=== PATIENT | female | born 1985 | race Caucasian/White ===

== ENCOUNTER 2018-03-02 14:18 | Emergency (ER) | payer OTHER ==
[2018-03-02] MEDS ORDERED: SODIUM CHLORIDE 0.9% 1,000 ML IV STA (14:42)
[2018-03-02] MEDS ORDERED: MAG HYDROX/AL HYDROX/SIMETH 30 ML, HYOSCYAMINE ELIXIR 10 ML, CIMETIDINE HCL 300 MG PO STA ×3 (14:43)
--- NOTE | 2018-03-02 15:02 | ED ---
Abdominal Pain HPI - General Chief Complaint: Abdominal Pain Stated Complaint: Abd Pain Time Seen by Provider: 03/02/18 14:36 Source: patient, RN notes reviewed Mode of arrival: ambulatory Limitations: no limitations - History of Present Illness Initial Comments: 32-year-old female presents emergency Department with chief complaint of left lower quadrant abdominal pain. Patient states that the symptoms started shortly after drinking some Coke. She states that her possible intervention cold the caffeine because she complained of a headache. Patient states her headache has improved but she has is sharp spasm like pain in her left upper quadrant. She states it's nonradiating. Denies any back or flank pain. She denies any current nausea, vomiting, diarrhea constipation. Denies any known fevers or chills. She's had no prior abdominal surgeries. Denies any chance . - Related Data Previous Rx's Medication Instructions Recorded Omeprazole 40 mg PO DAILY #14 capsule. 03/02/18 Allergies Allergy/AdvReac Type Severity Reaction Status Date / Time No Known Allergies Allergy Verified 03/02/18 14:30 Review of Systems ROS Statement: Those systems with pertinent positive or pertinent negative responses have been documented in the HPI. ROS Other: All systems not noted in ROS Statement are negative. Past Medical History Past Medical History: Asthma History of Any Multi-Drug Resistant Organisms: None Reported Past Surgical History: Section Past Psychological History: No Psychological Hx Reported Smoking Status: Current every day smoker Past Alcohol Use History: Rare Past Drug Use History: None Reported General Exam Limitations: no limitations General appearance: alert, in no apparent distress Head exam: Present: atraumatic, normocephalic, normal inspection Respiratory exam: Present: normal lung sounds bilaterally. Absent: respiratory distress, wheezes, rales, rhonchi, stridor Cardiovascular Exam: Present: regular rate, normal rhythm, normal heart sounds. Absent: systolic murmur, diastolic murmur, rubs, gallop, clicks GI/Abdominal exam: Present: soft, tenderness (moderate LUQ), normal bowel sounds. Absent: distended, guarding, rebound, rigid Back exam: Absent: CVA tenderness (R), CVA tenderness (L) Skin exam: Present: warm, dry, intact, normal color. Absent: rash Course Vital Signs 03/02/18 03/02/18 14:28 16:30 Temperature 98.7 F 98.5 F Pulse Rate 102 H 64 Respiratory 18 16 Rate Blood Pressure 126/89 132/81 O2 Sat by Pulse 99 100 Oximetry Medical Decision Making - Medical Decision Making 32-year-old female presented for abdominal pain. Patient has ongoing abdominal pain. Lab work, CT is unremarkable. Patient has symptoms more consistent with gastritis. She'll be started on omeprazole. Return parameters discussed. - Lab Data Result diagrams: 03/02/18 15:10 03/02/18 15:10 Lab Results 03/02/18 03/02/18 03/02/18 Range/Units 15:10 15:10 15:10 WBC 7.6 (3.8-10.6) k/uL RBC 4.70 (3.80-5.40) m/uL Hgb 14.8 (11.4-16.0) gm/dL Hct 43.8 (34.0-46.0) % MCV 93.2 (80.0-100.0) fL MCH 31.5 (25.0-35.0) pg MCHC 33.8 (31.0-37.0) g/dL RDW 12.5 (11.5-15.5) % Plt Count 236 (150-450) k/uL Neutrophils % 84 % Lymphocytes % 10 % Monocytes % 4 % Eosinophils % 1 % Basophils % 0 % Neutrophils # 6.4 (1.3-7.7) k/uL Lymphocytes # 0.8 L (1.0-4.8) k/uL Monocytes # 0.3 (0-1.0) k/uL Eosinophils # 0.1 (0-0.7) k/uL Basophils # 0.0 (0-0.2) k/uL Sodium 141 (137-145) mmol/L Potassium 4.3 (3.5-5.1) mmol/L Chloride 108 H (98-107) mmol/L Carbon Dioxide 23 (22-30) mmol/L Anion Gap 10 mmol/L BUN 9 (7-17) mg/dL Creatinine 0.65 (0.52-1.04) mg/dL Est GFR (CKD-EPI)AfAm >90 (>60 ml/min/1.73 sqM) Est GFR (CKD-EPI)NonAf >90 (>60 ml/min/1.73 sqM) Glucose 94 (74-99) mg/dL Calcium 9.3 (8.4-10.2) mg/dL Total Bilirubin 0.9 (0.2-1.3) mg/dL AST 40 H (14-36) U/L ALT 67 H (9-52) U/L Alkaline Phosphatase 55 (38-126) U/L Total Protein 7.8 (6.3-8.2) g/dL Albumin 4.9 (3.5-5.0) g/dL Amylase 44 (30-110) U/L Lipase 28 (23-300) U/L Urine Color Urine Appearance (Clear) Urine pH (5.0-8.0) Ur Specific [place] (1.001-1.035) Urine Protein (Negative) Urine Glucose (UA) (Negative) Urine Ketones (Negative) Urine Blood (Negative) Urine Nitrite (Negative) Urine Bilirubin (Negative) Urine Urobilinogen (<2.0) mg/dL Ur Leukocyte Esterase (Negative) Urine RBC (0-5) /hpf Urine WBC (0-5) /hpf Ur Squamous Epith Cells (0-4) /hpf Urine Mucus (None) /hpf Urine HCG, Qual Not Detected (Not Detectd) 03/02/18 Range/Units 15:10 WBC (3.8-10.6) k/uL RBC (3.80-5.40) m/uL Hgb (11.4-16.0) gm/dL Hct (34.0-46.0) % MCV (80.0-100.0) fL MCH (25.0-35.0) pg MCHC (31.0-37.0) g/dL RDW (11.5-15.5) % Plt Count (150-450) k/uL Neutrophils % % Lymphocytes % % Monocytes % % Eosinophils % % Basophils % % Neutrophils # (1.3-7.7) k/uL Lymphocytes # (1.0-4.8) k/uL Monocytes # (0-1.0) k/uL Eosinophils # (0-0.7) k/uL Basophils # (0-0.2) k/uL Sodium (137-145) mmol/L Potassium (3.5-5.1) mmol/L Chloride (98-107) mmol/L Carbon Dioxide (22-30) mmol/L Anion Gap mmol/L BUN (7-17) mg/dL Creatinine (0.52-1.04) mg/dL Est GFR (CKD-EPI)AfAm (>60 ml/min/1.73 sqM) Est GFR (CKD-EPI)NonAf (>60 ml/min/1.73 sqM) Glucose (74-99) mg/dL Calcium (8.4-10.2) mg/dL Total Bilirubin (0.2-1.3) mg/dL AST (14-36) U/L ALT (9-52) U/L Alkaline Phosphatase (38-126) U/L Total Protein (6.3-8.2) g/dL Albumin (3.5-5.0) g/dL Amylase (30-110) U/L Lipase (23-300) U/L Urine Color Yellow Urine Appearance Cloudy H (Clear) Urine pH 8.5 H (5.0-8.0) Ur Specific [place] 1.022 (1.001-1.035) Urine Protein 2+ H (Negative) Urine Glucose (UA) Negative (Negative) Urine Ketones Negative (Negative) Urine Blood Negative (Negative) Urine Nitrite Negative (Negative) Urine Bilirubin Negative (Negative) Urine Urobilinogen <2.0 (<2.0) mg/dL Ur Leukocyte Esterase Trace H (Negative) Urine RBC 2 (0-5) /hpf Urine WBC 2 (0-5) /hpf Ur Squamous Epith Cells 7 H (0-4) /hpf Urine Mucus Rare H (None) /hpf Urine HCG, Qual (Not Detectd) Disposition Clinical Impression: Abdominal pain, Gastritis Disposition: HOME SELF-CARE Condition: Stable Instructions: Gastritis (ED) Additional Instructions: Please return to the Emergency Department if symptoms worsen or any other concerns. Prescriptions: Omeprazole 40 mg PO DAILY #14 capsule.dr Is patient prescribed a controlled substance at d/c from ED?: No When asked, does pt state using other controlled substances?: No Referrals: Sandro Pal MD [STAFF PHYSICIAN] - 1-2 days Time of Disposition: 17:23
[2018-03-02 15:22] LABS: Basophils % (A) 0 %; Eosinophils # (A) 0.1 k/uL (0-0.7); Eosinophils % (A) 1 %; HCT 43.8 % (34.0-46.0); HGB 14.8 gm/dL (11.4-16.0); Lymphocytes # (A) 0.8 k/uL (1.0-4.8); Lymphocytes % (A) 10 %; MCH 31.5 pg (25.0-35.0); MCHC 33.8 g/dL (31.0-37.0); MCV 93.2 fL (80.0-100.0); Mean Platelet Volume 7.2; Monocytes # (A) 0.3 k/uL (0-1.0); Monocytes % (A) 4 %; Neutrophils # (A) 6.4 k/uL (1.3-7.7); Neutrophils % (A) 84 %; Platelet Count 236 k/uL (150-450); RDW 12.5 % (11.5-15.5); WBC 7.6 k/uL (3.8-10.6)
[2018-03-02 15:28] LABS: Appearance,Urine Cloudy (Clear); Bilirubin,Urine Negative (Negative); Blood,Urine Negative (Negative); Color,Urine Yellow; Glucose,Urine (UA) Negative (Negative); Ketones,Urine Negative (Negative); Leukocyte Esterase,Urine Trace (Negative); Mucus,Urine Rare /hpf; Nitrite,Urine Negative (Negative); PH, Urine 8.5 (5.0-8.0); Protein,Urine 2+ (Negative); RBC,Urine 2 /hpf (0-5); Specific Gravity,Urine 1.022 (1.001-1.035); Squamous Epithelial Cell,Urine 7 /hpf (0-4); Urobilinogen,Urine <2.0 mg/dL (<2.0); WBC,Urine 2 /hpf (0-5)
[2018-03-02 15:41] LABS: ALT 67 U/L (9-52); AST 40 U/L (14-36); Albumin 4.9 g/dL (3.5-5.0); Alkaline Phosphatase 55 U/L (38-126); Amylase 44 U/L (30-110); Anion Gap 10 mmol/L; Blood Urea Nitrogen 9 mg/dL (7-17); Calcium 9.3 mg/dL (8.4-10.2); Carbon Dioxide 23 mmol/L (22-30); Chloride 108 mmol/L (98-107); Glucose 94 mg/dL (74-99); Lipase 28 U/L (23-300); Potassium 4.3 mmol/L (3.5-5.1); Sodium 141 mmol/L (137-145); Total Bilirubin 0.9 mg/dL (0.2-1.3); Total Protein 7.8 g/dL (6.3-8.2)
--- NOTE | 2018-03-02 16:04 | XR ---
EXAMINATION TYPE: XR KUB DATE OF EXAM: 03/02/2018 3:53 PM CLINICAL HISTORY: Left lower quadrant pain. TECHNIQUE: Single supine KUB image of the abdomen is obtained. COMPARISON: None. FINDINGS: Scattered gas is seen in non-distended small bowel loops. Gas and fecal material is seen in non-distended colon. There is no visceromegaly, pneumoperitoneum, or abnormal calcification apprecia abbi. The lung bases are clear and the osseous structures are intact. IMPRESSION: Nonobstructive bowel gas pattern.
--- NOTE | 2018-03-02 16:50 | CT ---
EXAMINATION TYPE: CT abdomen pelvis w con DATE OF EXAM: 03/02/2018 COMPARISON: None HISTORY: LUQ pain and nausea today CT DLP: 1220 mGycm Automated exposure control for dose reduction was used. TECHNIQUE: Helical acquisition of images was performed from the lung bases through the pelvis. CONTRAST: Performed without Oral Contrast and with IV Contrast, patient injected with 100 mL of Isovue 300. FINDINGS: Lung bases are clear. There is no pleural effusion. Heart size is normal. There is no pericardial eff usion. Liver spleen pancreas gallbladder appear normal. Bile ducts are not dilated. There is no adrenal mass . Kidneys show satisfactory contrast opacification. There is no hydronephrosis. There is no ascites. Bladder distends smoothly. Uterus is anteverted. There is no evidence of a pelvic mass. Bony structur es appear intact. 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 I see no intestinal wall thick ening. There are no dilated loops. Appendix appears normal. IMPRESSION: NEGATIVE CT SCAN OF THE ABDOMEN AND PELVIS. NORMAL APPENDIX.
[2018-03-02] MEDS ORDERED: KETOROLAC 30 MG/ML 1 ML VIAL IVP STA (17:22)
[2018-03-02 17:55] VITALS: BP 128/72; PULSE 88; RESP 18; TEMP 98
== END 2018-03-02 17:50 | disposition home or self-care (01) ==
LOC: EC 14:18
DX: K29.70 Gastritis, unspecified, without bleeding (principal); F17.200 Nicotine dependence, unspecified, uncomplicated
CPT/HCPCS: 36415; 80053; 82150; 83690; 85025; 81001; 81025; 74018; 74177; 99284; 96374; 96361 ×2; J1885; Q9967

== ENCOUNTER 2018-09-24 21:20 | Inpatient (IN) | payer OTHER ==
--- NOTE | 2018-09-24 22:58 | ED ---
Psych HPI - General Source: patient Mode of arrival: ambulatory <Amita Scott - Last Filed: 09/25/18 04:06> <Vivi Guadalupe - Last Filed: 09/26/18 07:56> - General Chief Complaint: Psychiatric Symptoms Stated Complaint: Mental health Time Seen by Provider: 09/24/18 22:01 - History of Present Illness Initial Comments: 33-year-old female patient presents to the emergency department today for evaluation of increased anxiety and depression. Patient states that she has been having suicidal ideation today and was afraid to be alone. States that she did have a plan to drive her car fast into something. Patient states that he seems overwhelming at this time and she feels like everything is happening at once. States that this is causing her to become increasingly depressed and anxious. Patient states she did have one shot of alcohol today but denies any other alcohol or street drug use. Denies any current use of psychiatric medications. She does not see a counselor outpatient. States that she did have one previous suicide attempt in the past by taking pills when she was in high school. Denies any previous psychiatric admissions. States currently she is feeling well physically. Patient denies any recent rash, fever, chills, shortness breath, chest pain, abdominal pain, nausea, vomiting, diarrhea, constipation, back pain, numbness, tingling, dizziness, weakness, hematuria, dysuria, urinary urgency, urinary frequency, headache, visual changes, or any other complaints. (Amita Scott) - Related Data Home Medications Medication Instructions Recorded Confirmed No Known Home Medications 09/24/18 09/25/18 Allergies Allergy/AdvReac Type Severity Reaction Status Date / Time No Known Allergies Allergy Verified 09/25/18 02:40 Review of Systems ROS Other: All systems not noted in ROS Statement are negative. <Amita Scott - Last Filed: 09/25/18 04:06> ROS Other: All systems not noted in ROS Statement are negative. <Vivi Guadalupe - Last Filed: 09/26/18 07:56> ROS Statement: Those systems with pertinent positive or pertinent negative responses have been documented in the HPI. Past Medical History Past Medical History: Asthma History of Any Multi-Drug Resistant Organisms: None Reported Past Surgical History: Section Past Psychological History: Anxiety, Depression Smoking Status: Current every day smoker Past Alcohol Use History: Rare Past Drug Use History: Marijuana - Past Family History Mother Family Medical History: Hypertension Father Family Medical History: Cancer Additional Family Medical History / Comment(s): Pt states her father in 2010 from esophageal cancer <Amita Scott - Last Filed: 09/25/18 04:06> General Exam Limitations: no limitations General appearance: alert, in no apparent distress, other (Physical well- developed, well-nourished adult female patient in no acute distress. Vital signs upon presentation are temperature 98.1F, pulse 103, respirations 18, blood pressure 161/113, pulse ox 97% on room air.) Eye exam: Present: normal appearance, PERRL, EOMI. Absent: scleral icterus, conjunctival injection, periorbital swelling ENT exam: Present: normal exam, normal oropharynx, mucous membranes moist Respiratory exam: Present: normal lung sounds bilaterally. Absent: respiratory distress, wheezes, rales, rhonchi, stridor Cardiovascular Exam: Present: regular rate, normal rhythm, normal heart sounds. Absent: systolic murmur, diastolic murmur, rubs, gallop, clicks Neurological exam: Present: alert, oriented X3, CN II-XII intact Psychiatric exam: Present: depressed, anxious, suicidal ideation. Absent: homicidal ideation Skin exam: Present: warm, dry, intact, normal color. Absent: rash <Amita Scott - Last Filed: 09/25/18 04:06> Vital Signs 09/24/18 09/25/18 21:38 01:18 Temperature 98.1 F 98 F Pulse Rate 103 H 88 Respiratory 18 16 Rate Blood Pressure 161/113 139/98 O2 Sat by Pulse 97 98 Oximetry Medical Decision Making <Amita Scott - Last Filed: 09/25/18 04:06> <Vivi Guadalupe - Last Filed: 09/26/18 07:56> - Medical Decision Making 33-year-old female patient presented to the emergency department today for evaluation of increased depression and suicidal ideation. Physical examination was unremarkable. She was cleared medically and evaluated by emergency psychiatric services. It is felt patient would benefit from inpatient mission at this time. She'll be transferred to the mental health unit. (Amita Scott) I was available for consultation in the emergency department. The history and physical exam were done by the midlevel provider. I was consulted for this patient's care. I reviewed the case with the midlevel provider and based on their presentation of the patient, I agree with the assessment, medical decision making and plan of care as documented. (Vivi Guadalupe) - Lab Data Lab Results 09/24/18 09/25/18 09/25/18 Range/Units 21:45 00:00 00:00 Urine Color Yellow Urine Appearance Clear (Clear) Urine pH 6.0 (5.0-8.0) Ur Specific [place] 1.026 (1.001-1.035) Urine Protein Trace H (Negative) Urine Glucose (UA) Negative (Negative) Urine Ketones 1+ H (Negative) Urine Blood Negative (Negative) Urine Nitrite Negative (Negative) Urine Bilirubin Negative (Negative) Urine Urobilinogen <2.0 (<2.0) mg/dL Ur Leukocyte Esterase Negative (Negative) Urine HCG, Qual Not Detected (Not Detectd) Urine Opiates Screen Not Detected (NotDetected) Ur Oxycodone Screen Not Detected (NotDetected) Urine Methadone Screen Not Detected (NotDetected) Ur Propoxyphene Screen Not Detected (NotDetected) Ur Barbiturates Screen Not Detected (NotDetected) U Tricyclic Antidepress Not Detected (NotDetected) Ur Phencyclidine Scrn Not Detected (NotDetected) Ur Amphetamines Screen Not Detected (NotDetected) U Methamphetamines Scrn Not Detected (NotDetected) U Benzodiazepines Scrn Not Detected (NotDetected) Urine Cocaine Screen Not Detected (NotDetected) U Marijuana (THC) Screen Detected H (NotDetected) Disposition - Out of Hospital Transfer - Req. Specs Out of Hospital Transfer - Requested Specifics: Psychiatric Non-ICU ([facility]) <Amita Scott M - Last Filed: 09/25/18 04:06> <Vivi Guadalupe - Last Filed: 09/26/18 07:56> Clinical Impression: Depression, Suicidal ideation Disposition: TRANSFER TO PSYCH HOSP/UNIT Condition: Serious
[2018-09-24 23:09] LABS: Amphetamine Screen,Urine Not Detected (NotDetected); Barbiturate Screen,Urine Not Detected (NotDetected); Benzodiazepines Screen,Urine Not Detected (NotDetected); Cocaine Screen,Urine Not Detected (NotDetected); Methadone Screen, Urine Not Detected (NotDetected); Opiate Screen,Urine Not Detected (NotDetected); Oxycodone Screen, Urine Not Detected (NotDetected); Phencyclidine Screen,Urine Not Detected (NotDetected); Tricyclic Antidepressant,Urine Not Detected (NotDetected); Urn Cannabinoid Scrn Detected (NotDetected)
[2018-09-25] MEDS ORDERED: ACETAMINOPHEN TAB 500 MG TAB PO STA (00:56)
[2018-09-25] MEDS ORDERED: ACETAMINOPHEN TAB 325 MG TAB PO PRN (01:28)
[2018-09-25] MEDS ORDERED: MAG HYDROX/AL HYDROX/SIMETH 30 ML CUP PO PRN (01:28)
[2018-09-25] MEDS ORDERED: ZIPRASIDONE 20 MG VIAL IM PRN (01:28)
[2018-09-25] MEDS ORDERED: MAGNESIUM HYDROXIDE 2,400 MG/10 ML CUP PO PRN (01:28)
[2018-09-25] MEDS ORDERED: LORazepam 1 MG TAB PO PRN (01:28)
[2018-09-25 02:04] LABS: Appearance,Urine Clear (Clear); Bilirubin,Urine Negative (Negative); Blood,Urine Negative (Negative); Color,Urine Yellow; Glucose,Urine (UA) Negative (Negative); Ketones,Urine 1+ (Negative); Leukocyte Esterase,Urine Negative (Negative); Nitrite,Urine Negative (Negative); Protein,Urine Trace (Negative); Specific Gravity,Urine 1.026 (1.001-1.035); Urobilinogen,Urine <2.0 mg/dL (<2.0)
[2018-09-25 02:36] VITALS: BMI 34.0
--- NOTE | 2018-09-25 08:04 | P.HPIM ---
History of Present Illness H&P Date: 09/25/18 The patient is a 33-year-old female with a PMH of depression who presented to the ED due to suicidal ideation. The patient notes that things in her life and been overwhelming and that she had thoughts of hurting herself by driving her car into oncoming traffic. She notes that her social situation is really poor and that she has lost her high paying job and is currently working minimal wage and has also lost custody of her children and is currently homeless, living in her car. The patient notes that she feels as though she is a burden on her friends with whom she has been staying recently and noted that upon awakening yesterday she felt really depressed and wanted to hurt herself, and didn't feel safe, at which point she decided to come to the ED. The patient notes that she previously attempted suicide by taking a bottle full of aspirin when she was in high school after a fight with her boyfriend. The patient otherwise denied any active complaints or any additional past medical history. She does not take any medications. She denied chest pain, shortness of breath, nausea, vomiting, abdominal pain, diarrhea, constipation, fever, chills, or cough. She also denied any active homicidal or suicidal ideation. Review of Systems Pertinent positives and negatives as discussed in HPI, a complete review of systems was performed and all other systems are negative. Past Medical History Past Medical History: Asthma Additional Past Medical History / Comment(s): Degenerative disk disease and gastritis History of Any Multi-Drug Resistant Organisms: None Reported Past Surgical History: Section Past Anesthesia/Blood Transfusion Reactions: No Reported Reaction Past Psychological History: Anxiety, Depression Smoking Status: Current every day smoker Past Alcohol Use History: Rare Past Drug Use History: Marijuana - Past Family History Mother Family Medical History: Hypertension Father Family Medical History: Cancer Additional Family Medical History / Comment(s): Pt states her father in 2010 from esophageal cancer Medications and Allergies Home Medications Medication Instructions Recorded Confirmed Type No Known Home Medications 09/24/18 09/25/18 History Allergies Allergy/AdvReac Type Severity Reaction Status Date / Time No Known Allergies Allergy Verified 09/25/18 02:40 Physical Exam Vitals: Vital Signs Temp Pulse Pulse Resp BP BP Pulse Ox 09/25/18 02:22 97.0 F L 87 18 132/87 98 09/25/18 01:18 98 F 88 16 139/98 98 09/24/18 21:38 98.1 F 103 H 18 161/113 97 Intake and Output 09/24/18 09/25/18 09/25/18 22:59 06:59 14:59 Other: Weight 85.275 kg General: non toxic, no distress, appears at stated age, normal weight Derm: no unusual rashes/lesions no unusual ecchymoses, warm, dry Head: atraumatic, normocephalic, symmetric Eyes: EOMI, no lid lag, anicteric sclera, pupils equal round reactive to light ENT: Nose and ears atraumatic, no thrush, no pharyngeal erythema Neck: No thyromegaly, no cervical lymphadenopathy, trachea midline, supple Mouth: no lip lesion, mucus membranes moist Cardiovascular: S1S2 reg, no murmur, positive posterior tibial pulse bilateral, no edema, capillary refill less than 2 seconds Lungs: CTA bilateral, no rhonchi, no rales , no accessory muscle use Abdominal: soft, nontender to palpation, no guarding, no appreciable organomegaly, normal bowel sounds Ext: no gross muscle atrophy, muscle strength 5 out of 5 in all 4 extremities grossly, no contractures, Neuro: CN II-XI grossly intact, light touch intact all 4 extremities, finger to nose within normal limits, Psych: Alert, oriented, appropriate affect Results Labs: Abnormal Lab Results - Last 24 Hours (Table) 09/24/18 09/25/18 Range/Units 21:45 00:00 Urine Protein Trace H (Negative) Urine Ketones 1+ H (Negative) U Marijuana (THC) Screen Detected H (NotDetected) Thrombosis Risk Factor Assmnt - Choose All That Apply Any of the Below Risk Factors Present?: Yes Each Factor Represents 1 point: Obesity (BMI >25) Other Risk Factors: No Other congenital or acquired thrombophilia - If yes, enter type in comment: No Thrombosis Risk Factor Assessment Total Risk Factor Score: 1 Thrombosis Risk Factor Assessment Level: Low Risk Assessment and Plan Plan: Depression, suicidal ideation -As per psychiatry Positive ketones and protein in the urine -Check CBC, BMP, and A1c Thank you for allowing us to participate in the care of this patient. We will follow peripherally. Do not hesitate to contact us with questions. Someone can be reached from the [facility] hospitalist group at all hours of the day at [phone].
[2018-09-25] MEDS: NICOTINE 14MG/24HR PATCH TRANSDERM SCH (08:16)
--- NOTE | 2018-09-25 10:21 | P.HP ---
Psychiatric H&P - . H&P Date: 09/25/18 History & Physical: Allergies Allergy/AdvReac Type Severity Reaction Status Date / Time No Known Allergies Allergy Verified 09/25/18 02:40 Vital Signs Temp 97.0 F L 09/25/18 02:22 Pulse 87 09/25/18 02:22 Resp 18 09/25/18 02:22 BP 132/87 09/25/18 02:22 Pulse Ox 98 09/25/18 02:22 Intake & Output 09/24/18 09/25/18 09/25/18 18:59 06:59 18:59 Weight 85.275 kg Laboratory Last Values Urine Color Yellow 09/25/18 00:00 Urine Appearance Clear (Clear) 09/25/18 00:00 Urine pH 6.0 (5.0-8.0) 09/25/18 00:00 Ur Specific [place] 1.026 (1.001-1.035) 09/25/18 00:00 Urine Protein Trace (Negative) H 09/25/18 00:00 Urine Glucose (UA) Negative (Negative) 09/25/18 00:00 Urine Ketones 1+ (Negative) H 09/25/18 00:00 Urine Blood Negative (Negative) 09/25/18 00:00 Urine Nitrite Negative (Negative) 09/25/18 00:00 Urine Bilirubin Negative (Negative) 09/25/18 00:00 Urine Urobilinogen <2.0 mg/dL (<2.0) 09/25/18 00:00 Ur Leukocyte Esterase Negative (Negative) 09/25/18 00:00 Urine HCG, Qual Not Detected (Not Detectd) 09/25/18 00:00 Urine Opiates Screen Not Detected (NotDetected) 09/24/18 21:45 Ur Oxycodone Screen Not Detected (NotDetected) 09/24/18 21:45 Urine Methadone Screen Not Detected (NotDetected) 09/24/18 21:45 Ur Propoxyphene Screen Not Detected (NotDetected) 09/24/18 21:45 Ur Barbiturates Screen Not Detected (NotDetected) 09/24/18 21:45 U Tricyclic Antidepress Not Detected (NotDetected) 09/24/18 21:45 Ur Phencyclidine Scrn Not Detected (NotDetected) 09/24/18 21:45 Ur Amphetamines Screen Not Detected (NotDetected) 09/24/18 21:45 U Methamphetamines Scrn Not Detected (NotDetected) 09/24/18 21:45 U Benzodiazepines Scrn Not Detected (NotDetected) 09/24/18 21:45 Urine Cocaine Screen Not Detected (NotDetected) 09/24/18 21:45 U Marijuana (THC) Screen Detected (NotDetected) H 09/24/18 21:45 Assessment and Plan Assessment: 33-year-old female patient presents to the emergency department today for evaluation of increased anxiety and depression. Patient states that she has been having suicidal ideation today and was afraid to be alone. States that she did have a plan to drive her car fast into something. Patient states that he seems overwhelming at this time and she feels like everything is happening at once. States that this is causing her to become increasingly depressed and anxious. Patient states she did have one shot of alcohol today but denies any other alcohol or street drug use. Denies any current use of psychiatric medications. She does not see a counselor outpatient. States that she did have one previous suicide attempt in the past by taking pills when she was in high school. Denies any previous psychiatric admissions. States currently she is feeling well physically. Patient denies any recent rash, fever, chills, shortness breath, chest pain, abdominal pain, nausea, vomiting, diarrhea, constipation, back pain, numbness, tingling, dizziness, weakness, hematuria, dysuria, urinary urgency, urinary frequency, headache, visual changes, or any other complaints. - Related Data Home Medications Medication Instructions Recorded Confirmed No Known Home Medications 09/24/18 09/25/18 Allergies Allergy/AdvReac Type Severity Reaction Status Date / Time No Known Allergies Allergy Verified 09/25/18 02:40 Past Medical History Past Medical History: Asthma History of Any Multi-Drug Resistant Organisms: None Reported Past Surgical History: Section Past Psychological History: Anxiety, Depression Smoking Status: Current every day smoker Past Alcohol Use History: Rare Past Drug Use History: Marijuana - Past Family History Mother Family Medical History: Hypertension Father Family Medical History: Cancer Additional Family Medical History / Comment(s): Pt states her father in 2010 from esophageal cancer Musculoskeletal Examination - Abnormal/Involuntary Movements: [none] Strength: [greater than antigravity (greater than/equal to 3/5) in all extremities Muscle Tone: [no impairment Gait: [grossly normal Station: [grossly normal Mental Status Examination - this is a 33-year-old female who is had 2 previous children. One child lives with the mother on child lives with the biological father. She is graduated from high school. She smokes marijuana because she had a herniated disc. 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 General Appearance: [casual, appears stated age Speech/Language: [spontaneous, slow, rapid, slurred, rambled, mumbling, hesitant , halting, monotone, expressive, mute, loud, soft, other] Attitude/Behavior: [cooperative, guarded, irritable, withdrawn, indifferent, other] Mood: [euthymic, depressed, euphoric, anxious, elated, irritable, angry, fearful , hopelessness, other] Affect: [full range, lively, flat, incongruent, labile, blunted constricted, other] Orientation: [time, person, place situation] Thought Content: [wnl Risk Factors: [currently is suicidal (ideation, crashing her plan), however not Homicidal (ideations, plan), other] Perception: [wnl, denies hallucinations (auditory, visual, tactile), other] Thought Processes: [goal-oriented Concentration/Attention Span: [wnl] [Per observation and interview with the patient] Recent Memory: [wnl Remote Memory: [wnl] [past events, as related history] Intelligence: [below average, average, above average] [based on history, based on vocabulary, syntax, grammar, and content] Judgement: [ fair] [per patient's behavior/history of present illness] Insight: fair] [understanding severity of illness/history of present illness] Admitting Diagnosis: [major depressive single episode] Patient Strengths - Personal Skills: [x] Steady employment/financial stability: [x] Housing stability: [x] Able to vocalize needs: [x] Values and traditions: [x] Motivation, determination, readiness for change: [x] Setting and pursuing goals, hopes, dreams, aspirations: [x] Patient Limitations: [medication, lack of social supports] Initial Plan of Care: [This 33-year-old female is admitted on a formal voluntary who needs help on [address] [place] [id number] for depression and anxiety. She is placed on 15 minute checks and usual protocol for safety on the [facility]. She is to be evaluated by medicine, psychiatry, nursing staff, social work and occupational therapy for integration into [facility] whereby the be expected to take her medicine and participate in groups. She will be placed on Effexor 37.5 mg XR and Topamax 25 mg by mouth daily at bedtime.] Estimated Length of Stay: [7 days] Initial Discharge Plan: [home referred to therapist, Prognosis: [good, fair, guarded] Justification for Inpatient Hospitalization - [ anxiety, depression resulting in significant loss of functioning.] [Dangerous to self with need for controlled environment.] [Emotional or behavioral conditions and complications requiring 24 hour medical and nursing care.] [Need for special drug therapy, or other therapeutic program requiring continuous hospitalization.] [Failure of social or occupational functioning.] [Inability to meet basic life and health needs.] (1) Major depressive disorder with single episode Current Visit: Yes Status: Acute Code(s): F32.9 - MAJOR DEPRESSIVE DISORDER , SINGLE EPISODE, UNSPECIFIED SNOMED Code(s): 83373120
[2018-09-25] MEDS ORDERED: TOPIRAMATE 25 MG TAB PO SCH (21:00)
[2018-09-25] MEDS: VENLAFAXINE HCL ER 37.5 MG CAP PO SCH (21:25)
[2018-09-26 08:36] LABS: Basophils % (A) 1 %; Eosinophils # (A) 0.1 k/uL (0-0.7); Eosinophils % (A) 2 %; HCT 44.3 % (34.0-46.0); HGB 15.2 gm/dL (11.4-16.0); Lymphocytes # (A) 1.2 k/uL (1.0-4.8); Lymphocytes % (A) 24 %; MCH 32.3 pg (25.0-35.0); MCHC 34.4 g/dL (31.0-37.0); MCV 94.1 fL (80.0-100.0); Mean Platelet Volume 7.6; Monocytes # (A) 0.4 k/uL (0-1.0); Monocytes % (A) 7 %; Neutrophils # (A) 3.2 k/uL (1.3-7.7); Neutrophils % (A) 64 %; Platelet Count 200 k/uL (150-450); RBC 4.71 m/uL (3.80-5.40); RDW 12.8 % (11.5-15.5); WBC 4.9 k/uL (3.8-10.6)
[2018-09-26 08:45] LABS: ALT 73 U/L (9-52); AST 28 U/L (14-36); Albumin 4.9 g/dL (3.5-5.0); Alkaline Phosphatase 48 U/L (38-126); Anion Gap 11 mmol/L; Blood Urea Nitrogen 15 mg/dL (7-17); Calcium 9.8 mg/dL (8.4-10.2); Carbon Dioxide 24 mmol/L (22-30); Chloride 107 mmol/L (98-107); Cholesterol 138 mg/dL (<200); Glucose 96 mg/dL (74-99); HDL Cholesterol 50 mg/dL (40-60); LDL Cholesterol,Calculated 74 mg/dL (0-99); Potassium 4.3 mmol/L (3.5-5.1); Sodium 142 mmol/L (137-145); Total Bilirubin 1.7 mg/dL (0.2-1.3); Total Protein 7.8 g/dL (6.3-8.2); Triglycerides 70 mg/dL (<150)
[2018-09-26] MEDS: NICOTINE 14MG/24HR PATCH TRANSDERM SCH (08:57)
[2018-09-26] MEDS ORDERED: ONDANSETRON 4 MG TAB PO PRN (12:01)
--- NOTE | 2018-09-26 12:18 | P.PN ---
Subjective Progress Note Date: 09/26/18 Principal diagnosis: major depressive single episode] Chart reviewed, discussed with nursing staff, and was steamed this morning staff meeting. Patient was interviewed in my office and was able to describe that she is depressed about missing a court date yesterday for DUI and she was more concerned about dying then the court. She describes that she's being tired of making bad decisions and having to live with the consequences. She talked about her niece and aunt are being impacted from their house in the mail come together to buy/rent a house and accosted be cheaper split 3 ways. She has less suicidal thoughts today but was complaining of acid stomach, headache and difficulty sleeping last night. Objective - Vital Signs Vital signs: Vital Signs Temp 98.7 F 09/26/18 06:21 Pulse 77 09/26/18 06:21 Resp 15 09/26/18 06:21 BP 129/87 09/26/18 06:21 Pulse Ox 98 09/25/18 02:22 - Labs CBC & Chem 7: 09/26/18 07:45 09/26/18 07:45 Labs: Abnormal Lab Results - Last 24 Hours (Table) 09/26/18 Range/Units 07:45 Total Bilirubin 1.7 H (0.2-1.3) mg/dL ALT 73 H (9-52) U/L Assessment and Plan Assessment: 33-year-old female patient presents to the emergency department today for evaluation of increased anxiety and depression. Patient states that she has been having suicidal ideation today and was afraid to be alone. States that she did have a plan to drive her car fast into something. Patient states that he seems overwhelming at this time and she feels like everything is happening at once. States that this is causing her to become increasingly depressed and anxious. Patient states she did have one shot of alcohol today but denies any other alcohol or street drug use. Denies any current use of psychiatric medications. She does not see a counselor outpatient. States that she did have one previous suicide attempt in the past by taking pills when she was in high school. Denies any previous psychiatric admissions. States currently she is feeling well physically. Patient denies any recent rash, fever, chills, shortness breath, chest pain, abdominal pain, nausea, vomiting, diarrhea, constipation, back pain, numbness, tingling, dizziness, weakness, hematuria, dysuria, urinary urgency, urinary frequency, headache, visual changes, or any other complaints. - Mental Status Examination - this is a 33-year-old female who is had 2 previous children. One child lives with the mother on child lives with the biological father. She is graduated from high school. She smokes marijuana because she had a herniated disc. 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 General Appearance: [casual, appears stated age Speech/Language: [spontaneous, slow, rapid, slurred, rambled, mumbling, hesitant , halting, monotone, expressive, mute, loud, soft, other] Attitude/Behavior: [cooperative, guarded, irritable, withdrawn, indifferent, other] Mood: [euthymic, depressed, euphoric, anxious, elated, irritable, angry, fearful , hopelessness, other] Affect: [full range, lively, flat, incongruent, labile, blunted constricted, other] Orientation: [time, person, place situation] Thought Content: [wnl Risk Factors: [currently is suicidal (ideation, crashing her plan), however not Homicidal (ideations, plan), other] Perception: [wnl, denies hallucinations (auditory, visual, tactile), other] Thought Processes: [goal-oriented Concentration/Attention Span: [wnl] [Per observation and interview with the patient] Recent Memory: [wnl Remote Memory: [wnl] [past events, as related history] Intelligence: [below average, average, above average] [based on history, based on vocabulary, syntax, grammar, and content] Judgement: [ fair] [per patient's behavior/history of present illness] Insight: fair] [understanding severity of illness/history of present illness] Admitting Diagnosis: [major depressive single episode] Patient Limitations: [medication, lack of social supports, impending DUI court date] Initial Plan of Care: [This 33-year-old female is admitted on a formal voluntary who needs help on [facility] unit for depression and anxiety. She is placed on 15 minute checks and usual protocol for safety on the [facility]. She is to be evaluated by medicine, psychiatry, nursing staff, social work and occupational therapy for integration into [facility] whereby the be expected to take her medicine and participate in groups. She will be placed on Effexor 37.5 mg XR and Topamax 25 mg by mouth daily at bedtime.] (1) Major depressive disorder with single episode Current Visit: Yes Status: Acute Code(s): F32.9 - MAJOR DEPRESSIVE DISORDER , SINGLE EPISODE, UNSPECIFIED SNOMED Code(s): 13084173 Plan: 09/26/2018: With complaints of nausea and acid stomach I have added Protonix twice a day along with Zofran. I have increased her Topamax from 25 mg to 50 mg by mouth daily at bedtime and we'll hold her Effexor at 37.5 mg XR which may be causing the nausea. She will be remain on 15 minute checks and needs to participate in [facility] including groups and activities taking her medications and participating in her own care. Time with Patient: Less than 30
[2018-09-26] MEDS: PANTOPRAZOLE 40 MG TABLET PO SCH (17:00)
[2018-09-26 18:09] LABS: Hemoglobin A1C 4.8 % (4.0-6.0)
[2018-09-26] MEDS: VENLAFAXINE HCL ER 37.5 MG CAP PO SCH (20:11)
[2018-09-26] MEDS ORDERED: TOPIRAMATE 25 MG TAB PO SCH (21:00)
[2018-09-27 07:30] VITALS: RESP 16
[2018-09-27] MEDS: NICOTINE 14MG/24HR PATCH TRANSDERM SCH (08:55)
[2018-09-27] MEDS: PANTOPRAZOLE 40 MG TABLET PO SCH ×2 (08:55→16:40)
--- NOTE | 2018-09-27 12:50 | P.PN ---
Subjective Progress Note Date: 09/27/18 Principal diagnosis: major depressive single episode] Chart reviewed, discussed with nursing staff, and was teamed this morning staff meeting. Patient was interviewed in my office and was able to describe that she is depressed about missing a court date yesterday for DUI and she was more concerned about dying then the court. She describes that she's being tired of making bad decisions and having to live with the consequences. She talked about her niece and aunt are being impacted from their house in the mail come together to buy/rent a house and accosted be cheaper split 3 ways. She has less suicidal thoughts today but was complaining of acid stomach, headache and difficulty sleeping last night. 09/27/2018: Chart reviewed and discussed with nursing staff and interviewed the patient in office. I gave the telephone number traffic [address] and recalled and no answer she will call later on today. She tends to ignore her responsibilities and confronted her today about that she needs to take care of this traffic DUI today. She became tearful sad and overwhelmed hopeless helpless and continued thoughts of not wanting to live. She describes she has no support system her mom told her she was going to drive until her self was discontinued over and was her aunt who told her to come and get help. Objective - Vital Signs Vital signs: Vital Signs Temp 98.6 F 09/27/18 06:44 Pulse 81 09/27/18 06:44 Resp 16 09/27/18 06:44 BP 133/81 09/27/18 06:44 Pulse Ox 98 09/25/18 02:22 - Labs CBC & Chem 7: 09/26/18 07:45 09/26/18 07:45 Assessment and Plan Assessment: 33-year-old female patient presents to the emergency department today for evaluation of increased anxiety and depression. Patient states that she has been having suicidal ideation today and was afraid to be alone. States that she did have a plan to drive her car fast into something. Patient states that he seems overwhelming at this time and she feels like everything is happening at once. States that this is causing her to become increasingly depressed and anxious. Patient states she did have one shot of alcohol today but denies any other alcohol or street drug use. Denies any current use of psychiatric medications. She does not see a counselor outpatient. States that she did have one previous suicide attempt in the past by taking pills when she was in high school. Denies any previous psychiatric admissions. States currently she is feeling well physically. Patient denies any recent rash, fever, chills, shortness breath, chest pain, abdominal pain, nausea, vomiting, diarrhea, constipation, back pain, numbness, tingling, dizziness, weakness, hematuria, dysuria, urinary urgency, urinary frequency, headache, visual changes, or any other complaints. - Mental Status Examination - this is a 33-year-old female who is had 2 previous children. One child lives with the mother on child lives with the biological father. She is graduated from high school. She smokes marijuana because she had a herniated disc. 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 General Appearance: [casual, appears stated age Speech/Language: [spontaneous, slow, rapid, slurred, rambled, mumbling, hesitant , halting, monotone, expressive, mute, loud, soft, other] Attitude/Behavior: [cooperative, guarded, irritable, withdrawn, indifferent, other] Mood: [euthymic, depressed, euphoric, anxious, elated, irritable, angry, fearful , hopelessness, other] Affect: [full range, lively, flat, incongruent, labile, blunted constricted, other] Orientation: [time, person, place situation] Thought Content: [wnl Risk Factors: [currently is suicidal (ideation, crashing her plan), however not Homicidal (ideations, plan), other] Perception: [wnl, denies hallucinations (auditory, visual, tactile), other] Thought Processes: [goal-oriented Concentration/Attention Span: [wnl] [Per observation and interview with the patient] Recent Memory: [wnl Remote Memory: [wnl] [past events, as related history] Intelligence: [below average, average, above average] [based on history, based on vocabulary, syntax, grammar, and content] Judgement: [ fair] [per patient's behavior/history of present illness] Insight: fair] [understanding severity of illness/history of present illness] Admitting Diagnosis: [major depressive single episode] Patient Limitations: [medication, lack of social supports, impending DUI court date] Initial Plan of Care: [This 33-year-old female is admitted on a formal voluntary who [facility]. She is placed on 15 minute checks and usual protocol for safety on the [facility]. She is to be evaluated by medicine, psychiatry, nursing staff, social work and occupational therapy for integration into [facility] whereby the be expected to take her medicine and participate in groups. She will be placed on Effexor 37.5 mg XR and Topamax 25 mg by mouth daily at bedtime.] (1) Major depressive disorder with single episode Current Visit: Yes Status: Acute Code(s): F32.9 - MAJOR DEPRESSIVE DISORDER , SINGLE EPISODE, UNSPECIFIED SNOMED Code(s): 12511596 Plan: 09/26/2018: With complaints of nausea and acid stomach I have added Protonix twice a day along with Zofran. I have increased her Topamax from 25 mg to 50 mg by mouth daily at bedtime and we'll hold her Effexor at 37.5 mg XR which may be causing the nausea. She will be remain on 15 minute checks and needs to participate in [facility] including groups and activities taking her medications and participating in her own care. 09/27/2018: Discussed in detail about her medications benefit risk ratio and discussed with her increasing her Topamax to 75 mg and Effexor to 75 mg by mouth daily at bedtime. She remains on 15 minute checks. She has no headache today and feels somewhat better overall but still very tearful and hysterical today. She is to call traffic court later on today [phone] and tell them where she is at. Time with Patient: Greater than 30
[2018-09-27] MEDS ORDERED: TOPIRAMATE 25 MG TAB PO SCH (21:00)
[2018-09-27] MEDS: VENLAFAXINE HCL ER 75 MG CAP PO SCH (21:44)
[2018-09-28] MEDS: PANTOPRAZOLE 40 MG TABLET PO SCH ×2 (08:48→17:51)
[2018-09-28] MEDS: NICOTINE 14MG/24HR PATCH TRANSDERM SCH (08:49)
--- NOTE | 2018-09-28 12:25 | P.PN ---
Subjective Progress Note Date: 09/28/18 Principal diagnosis: major depressive single episode] Chart reviewed, discussed with nursing staff, and was teamed this morning staff meeting. Patient was interviewed in my office and was able to describe that she is depressed about missing a court date yesterday for DUI and she was more concerned about dying then the court. She describes that she's being tired of making bad decisions and having to live with the consequences. She talked about her niece and aunt are being impacted from their house in the mail come together to buy/rent a house and would be cheaper split 3 ways. She has less suicidal thoughts today but was complaining of acid stomach, headache and difficulty sleeping last night. 09/27/2018: Chart reviewed and discussed with nursing staff and interviewed the patient in office. I gave the telephone number traffic [address] and recalled and no answer she will call later on today. She tends to ignore her responsibilities and confronted her today about that she needs to take care of this traffic DUI today. She became tearful sad and overwhelmed hopeless helpless and continued thoughts of not wanting to live. She describes she has no support system her mom told her she was going to drive until her self was discontinued over and was her aunt who told her to come and get help. 09/28/2018: chart reviewed and discussed in Team. Still in denial regards to DUI and ignoring.Stress, overwhelmd and never ending depression. I know I am helping myself but I am in her getting help. Objective - Vital Signs Vital signs: Vital Signs Temp 98.4 F 09/28/18 06:32 Pulse 94 09/28/18 06:32 Resp 16 09/28/18 06:32 BP 130/84 09/28/18 06:32 Pulse Ox 98 09/25/18 02:22 - Labs CBC & Chem 7: 09/26/18 07:45 09/26/18 07:45 Assessment and Plan Assessment: 33-year-old female patient presents to the emergency department today for evaluation of increased anxiety and depression. Patient states that she has been having suicidal ideation today and was afraid to be alone. States that she did have a plan to drive her car fast into something. Patient states that he seems overwhelming at this time and she feels like everything is happening at once. States that this is causing her to become increasingly depressed and anxious. Patient states she did have one shot of alcohol today but denies any other alcohol or street drug use. Denies any current use of psychiatric medications. She does not see a counselor outpatient. States that she did have one previous suicide attempt in the past by taking pills when she was in high school. Denies any previous psychiatric admissions. States currently she is feeling well physically. Patient denies any recent rash, fever, chills, shortness breath, chest pain, abdominal pain, nausea, vomiting, diarrhea, constipation, back pain, numbness, tingling, dizziness, weakness, hematuria, dysuria, urinary urgency, urinary frequency, headache, visual changes, or any other complaints. - Mental Status Examination - this is a 33-year-old female who is had 2 previous children. One child lives with the mother on child lives with the biological father. She is graduated from high school. She smokes marijuana because she had a herniated disc. 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 General Appearance: [casual, appears stated age Speech/Language: [spontaneous, slow, rapid, slurred, rambled, mumbling, hesitant , halting, monotone, expressive, mute, loud, soft, other] Attitude/Behavior: [cooperative, guarded, irritable, withdrawn, indifferent, other] Mood: [euthymic, depressed, euphoric, anxious, elated, irritable, angry, fearful , hopelessness, other] Affect: [full range, lively, flat, incongruent, labile, blunted constricted, other] Orientation: [time, person, place situation] Thought Content: [wnl Risk Factors: [currently is suicidal (ideation, crashing her plan), however not Homicidal (ideations, plan), other] Perception: [wnl, denies hallucinations (auditory, visual, tactile), other] Thought Processes: [goal-oriented Concentration/Attention Span: [wnl] [Per observation and interview with the patient] Recent Memory: [wnl Remote Memory: [wnl] [past events, as related history] Intelligence: [below average, average, above average] [based on history, based on vocabulary, syntax, grammar, and content] Judgement: [ fair] [per patient's behavior/history of present illness] Insight: fair] [understanding severity of illness/history of present illness] Admitting Diagnosis: [major depressive single episode] Patient Limitations: [medication, lack of social supports, impending DUI court date] Initial Plan of Care: [This 33-year-old female is admitted on a formal voluntary who [facility] and anxiety. She is placed on 15 minute checks and usual protocol for safety on the [facility] therapeutic environment. She is to be evaluated by medicine, psychiatry, nursing staff, social work and occupational therapy for integration into [facility] therapeutic environment whereby the be expected to take her medicine and participate in groups. She will be placed on Effexor 37.5 mg XR and Topamax 25 mg by mouth daily at bedtime.] (1) Major depressive disorder with single episode Current Visit: Yes Status: Acute Code(s): F32.9 - MAJOR DEPRESSIVE DISORDER , SINGLE EPISODE, UNSPECIFIED SNOMED Code(s): 52626140 Plan: 09/26/2018: With complaints of nausea and acid stomach I have added Protonix twice a day along with Zofran. I have increased her Topamax from 25 mg to 50 mg by mouth daily at bedtime and we'll hold her Effexor at 37.5 mg XR which may be causing the nausea. She will be remain on 15 minute checks and needs to participate in [facility] therapeutic environment including groups and activities taking her medications and participating in her own care. 09/27/2018: Discussed in detail about her medications benefit risk ratio and discussed with her increasing her Topamax to 75 mg and Effexor to 75 mg by mouth daily at bedtime. She remains on 15 minute checks. She has no headache today and feels somewhat better overall but still very tearful and hysterical today. She is to call traffic court later on today [phone] and tell them where she is at. 09/28/2018: Increase topamax to 100 mg po qhs; 15 minutes checks. [facility] milieu therapeutic environment. Continue and follow. Time with Patient: Less than 30
[2018-09-28] MEDS: TOPIRAMATE 100 MG TAB PO SCH (21:37)
[2018-09-28] MEDS: VENLAFAXINE HCL ER 75 MG CAP PO SCH (21:37)
[2018-09-29] MEDS: PANTOPRAZOLE 40 MG TABLET PO SCH ×2 (09:18→17:05)
[2018-09-29] MEDS: NICOTINE 14MG/24HR PATCH TRANSDERM SCH (09:38)
--- NOTE | 2018-09-29 10:28 | P.PN ---
Progress Note - Text Interval history: The patient is found in her room she follows me to an interview room. She was admitted to the mental health unit with symptoms of depression and suicidal ideation. She states her suicidal thoughts have been decreasing while here. She's been started on Effexor PAXAR as well as Topamax. It seems she's been experiencing nausea since being on these medications. She does have Zofran prescribed as needed. She states yesterday seem to be a better day especially in the afternoon. In terms of her mood today "I don't really feel anything". She anticipates no visitors this evening as she doesn't expect her boyfriend will drive from [place]. Appetite has been reduced. She indicates she is sleeping. Mental status exam: The patient is an overweight female appearing her stated age. She has a disheveled appearance hygiene is adequate. She is dressed in her own clothing. Speech is fluent spontaneous nonpressured. She maintains a constricted affect she has difficulty identifying her mood today. She reports no auditory or visual hallucinations or any specific delusions. She demonstrates no tangential thinking loose associations or flight of ideas. She does not appear hypomanic or manic. Insight and judgment limited. She demonstrates no verbal or physical aggressiveness she demonstrates no involuntary repetitive movements. Plan: The patient will continue on her current psychotropic medication. We will monitor her for safety and encourage her full participation in the milieu. Vital signs reviewed.
[2018-09-29] MEDS: VENLAFAXINE HCL ER 75 MG CAP PO SCH (20:54)
[2018-09-29] MEDS: TOPIRAMATE 100 MG TAB PO SCH (20:54)
[2018-09-30] MEDS: NICOTINE 14MG/24HR PATCH TRANSDERM SCH (08:29)
[2018-09-30] MEDS: PANTOPRAZOLE 40 MG TABLET PO SCH ×2 (08:29→17:31)
--- NOTE | 2018-09-30 14:13 | P.PN ---
Progress Note - Text Interval history: The patient is found in group she follows me to an interview room. She states that she is feeling better. She is hoping that she will be discharged tomorrow. She states she's been selectively attending groups. She describes having an issue with one of the staff leading groups today. Appetite stable. She indicates having some difficulty sleeping but staff reported she slept 6 hours last night. She states that she is glad she came to the hospital she feels she is stabilizing and feels safe. She has no questions or concerns regarding her psychotropic medication. Mental status exam: The patient is an alert female appearing her stated age she is dressed in her own clothing. Eye contact is appropriate speech is fluent and spontaneous nonpressured. She denies having any suicidal or homicidal ideation intent or plan. She is endorsing no auditory or visual hallucinations or any specific delusions. Insight and judgment improving. She demonstrates no verbal or physical aggressiveness. Affect is constricted. She demonstrates future oriented thinking. Plan: The patient will continue on her current psychotropic medication. She appears to be clinically stabilizing. She is hoping to reside with her aunt upon discharge. Social work notes were reviewed. We will monitor the patient for safety and encourage full participation in the milieu. Vital signs reviewed.
[2018-09-30] MEDS: TOPIRAMATE 100 MG TAB PO SCH (20:55)
[2018-09-30] MEDS: VENLAFAXINE HCL ER 75 MG CAP PO SCH (20:55)
[2018-10-01 06:52] VITALS: BP 129/77; PULSE 83; TEMP 97.9
[2018-10-01] MEDS: PANTOPRAZOLE 40 MG TABLET PO SCH (08:02)
[2018-10-01] MEDS: NICOTINE 14MG/24HR PATCH TRANSDERM SCH (08:02)
--- NOTE | 2018-10-01 11:22 | P.DS ---
Providers Date of admission: 09/25/18 01:14 Expected date of discharge: 10/01/18 Attending physician: Joel Van DO Consults: 09/25/18 01:28 Consult Physician Routine Consulting Provider: Kimmie Au Consult Reason/Comments: H and P for medical follow up Do you want consulting provider notified?: Yes Primary care physician: Stated None - Discharge Diagnosis(es) (1) Major depressive disorder with single episode 33-year-old female patient presents to the emergency department today for evaluation of increased anxiety and depression. Patient states that she has been having suicidal ideation today and was afraid to be alone. States that she did have a plan to drive her car fast into something. Patient states that he seems overwhelming at this time and she feels like everything is happening at once. States that this is causing her to become increasingly depressed and anxious. Patient states she did have one shot of alcohol today but denies any other alcohol or street drug use. Denies any current use of psychiatric medications. She does not see a counselor outpatient. States that she did have one previous suicide attempt in the past by taking pills when she was in high school. Denies any previous psychiatric admissions. States currently she is feeling well physically. Patient denies any recent rash, fever, chills, shortness breath, chest pain, abdominal pain, nausea, vomiting, diarrhea, constipation, back pain, numbness, tingling, dizziness, weakness, hematuria, dysuria, urinary urgency, urinary frequency, headache, visual changes, or any other complaints. - Related Data Home Medications Medication Instructions Recorded Confirmed No Known Home Medications 09/24/18 09/25/18 Allergies Allergy/AdvReac Type Severity Reaction Status Date / Time No Known Allergies Allergy Verified 09/25/18 02:40 Past Medical History Past Medical History: Asthma History of Any Multi-Drug Resistant Organisms: None Reported Past Surgical History: Section Past Psychological History: Anxiety, Depression Smoking Status: Current every day smoker Past Alcohol Use History: Rare Past Drug Use History: Marijuana - Past Family History Mother Family Medical History: Hypertension Father Family Medical History: Cancer Additional Family Medical History / Comment(s): Pt states her father in 2010 from esophageal cancer Current Visit: Yes Status: Acute Hospital Course: Plan of Care: [This 33-year-old female is admitted on a formal voluntary who [facility] depression and anxiety. She is placed on 15 minute checks and usual protocol for safety on the [facility] therapeutic environment. She is to be evaluated by medicine, psychiatry, nursing staff, social work and occupational therapy for integration into [facility] therapeutic environment whereby the be expected to take her medicine and participate in groups. She will be placed on Effexor 37.5 mg XR and Topamax 25 mg by mouth daily at bedtime.] 09/26/2018: With complaints of nausea and acid stomach I have added Protonix twice a day along with Zofran. I have increased her Topamax from 25 mg to 50 mg by mouth daily at bedtime and we'll hold her Effexor at 37.5 mg XR which may be causing the nausea. She will be remain on 15 minute checks and needs to participate in [facility] therapeutic environment including groups and activities taking her medications and participating in her own care. 09/27/2018: Discussed in detail about her medications benefit risk ratio and discussed with her increasing her Topamax to 75 mg and Effexor to 75 mg by mouth daily at bedtime. She remains on 15 minute checks. She has no headache today and feels somewhat better overall but still very tearful and hysterical today. She is to call traffic court later on today [phone] and tell them where she is at. 09/28/2018: Increase topamax to 100 mg po qhs; 15 minutes checks. [facility] therapeutic environment. Continue and follow. Mental status examination time of discharge: The patient presents alert, pleasant, and cooperative. There calmly seated without any agitated behavior. [She] reports that [her] mood is good. Affect is congruent and euthymic. [She] deny having any suicidal or homicidal ideation intent or plan. [She] denies any auditory or visual hallucinations. There is no evidence of any delusional thought content. [Her] thought process is linear and goal-directed. [Her] speech is fluent and nonpressured. [Her] memory and concentration is grossly intact for the purposes of this session. Patient Condition at Discharge: Stable Plan - Discharge Summary Discharge Rx Participant: Yes New Discharge Prescriptions: New Pantoprazole [Protonix] 40 mg PO AC-BID 30 Days #60 tablet. Topiramate [Topamax] 100 mg PO 2100 30 Days #30 tab Venlafaxine HCl ER [Effexor XR] 75 mg PO HS 30 Days #30 cap.er.24h Discharge Medication List Pantoprazole [Protonix] 40 mg PO AC-BID 30 Days #60 tablet. 10/01/18 [Rx] Topiramate [Topamax] 100 mg PO 2100 30 Days #30 tab 10/01/18 [Rx] Venlafaxine HCl ER [Effexor XR] 75 mg PO HS 30 Days #30 cap.er.24h 10/01/18 [Rx] Follow up Appointment(s)/Referral(s): Intake, Intake [Other] - 10/01/18 2:00 pm (w/ Willy [facility]) None,Stated [Primary Care Provider] - 1-2 days Patient Instructions/Handouts: Mood Disorders (DC), Depression (ED), Help Prevent Suicide (DC) Activity/Diet/Wound Care/Special Instructions: Activity and diet as [id number]. No guns or weapons in the home. No alcohol or street drugs, not prescribed by your physician. Attend all follow up appointments as scheduled. Take all medications as prescribed. If in need of refills of medications, please go to your primary care physician, or to your out patient psychiatrist. If symptoms worsen, please call the crisis line at 1- [phone]. If in need of emergency treatment, please go to your nearest ER. Discharge Disposition: HOME SELF-CARE
== END 2018-10-01 12:17 | disposition home or self-care (01) | DRG 881 ==
LOC: EC 21:20 → 3MHU 09-25 01:14
PROVIDERS: ADMIT Psychiatry & Neurology Psychiatry; ATTEND Psychiatry & Neurology Psychiatry
DX: F32.9 Major depressive disorder, single episode, unspecified (principal); R45.851 Suicidal ideations; J45.909 Unspecified asthma, uncomplicated; G47.9 Sleep disorder, unspecified; K30 Functional dyspepsia; F41.9 Anxiety disorder, unspecified; F17.200 Nicotine dependence, unspecified, uncomplicated; E66.9 Obesity, unspecified; Z68.33 Body mass index [BMI] 33.0-33.9, adult; Z91.5 Personal history of self-harm; Z99.89 Dependence on other enabling machines and devices; Z59.0 Homelessness; Z82.49 Family history of ischemic heart disease and other diseases of the circulatory system; Z80.0 Family history of malignant neoplasm of digestive organs
CPT/HCPCS: 80053; 80061; 80306; 81003; 81025; 82075; 83036; 84443; 85025; 99285